=== PATIENT | female | born 1940 | race Caucasian/White ===

== ENCOUNTER → 2020-06-02 | Outpatient (CLI) | payer MEDICARE ==
[2020-06-02 12:44] LABS: BASOPHILS % (AUTO) 0.2 % (0.0-5.0); EOSINOPHILS % (AUTO) 1.5 % (0.0-8.0); HEMATOCRIT 34.1 % (36-48); LYMPHOCYTES % (AUTO) 79.7 % (21.0-51.0); MEAN CORPUSCULAR HEMOGLOBIN 29.1 pg (27.0-33.0); MEAN CORPUSCULAR VOLUME 91.2 fL (79-99); MONOCYTES % (AUTO) 5.7 % (3.0-13.0); NEUTROPHILS % (AUTO) 12.7 % (40.0-77.0); NUCLEATED RED BLOOD CELLS 0.1 % (0.0-0.19); PLATELET COUNT (AUTO) 103 K/uL (130-400); RED BLOOD CELL COUNT(AUTO) 3.74 MIL/uL (4.00-5.50); RED CELL DISTRIBUTION WIDTH 14.8 % (11.0-15.5); WHITE BLOOD COUNT (AUTO) 21.8 K/uL (4.8-10.8)
[2020-06-02 12:50] LABS: APPEARANCE,URINE Cloudy (CLEAR); BILIRUBIN,URINE Negative (NEGATIVE); COLOR,URINE Yellow (YELLOW); GLUCOSE, URINE (UA) Negative (NEGATIVE); KETONES,URINE Negative (NEGATIVE); LEUKOCYTE ESTERASE ,URINE Moderate (NEGATIVE); NITRATE,URINE Negative (NEGATIVE); OCCULT BLOOD,URINE Negative (NEGATIVE); PROTEIN,URINE Trace mg/dL (NEGATIVE); UROBILINOGEN,URINE 0.2 mg/dL (0.2-1.0)
[2020-06-02 12:56] LABS: CREATININE 1.2 mg/dL (0.5-1.5); POTASSIUM 4.8 mmol/L (3.5-5.1)
[2020-06-02 13:17] LABS: BACTERIA,URINE Many /HPF (None Seen); RBC,URINE 0-1 /HPF (0-1); SQUAMOUS EPITHELIAL CELL,UR Rare /HPF (0-2); WBC,URINE 26-50 /HPF (0-1)
[2020-06-02 13:19] LABS: INR 0.95 (0.85-1.15); PARTIAL THROMBOPLASTIN TIME 23.8 SEC (26.3-35.5); PROTHROMBIN TIME 10.3 SEC (9.6-11.6)
[2020-06-02 14:13] LABS: EOSINOPHILS % (MANUAL) 1 % (1-6); LYMPHOCYTES % (MANUAL) 86 % (22-44); MAN.DIFF COMMENT-IMPRESSION MANUAL DIFFERENTIAL; SEGMENTED NEUTROPHILS % 13 % (40-70)
[2020-06-02 14:14] LABS: PLATELET MORPHOLOGY COMMENT SLIGHTLY DECREASED
--- NOTE | 2020-06-03 10:12 | NUR ---
LABS ABNORMAL LABS INCLUDING HEMOGLOBIN, HEMATOCRIT, WBC, URINALYSIS, URINE CULTURE, AND PTT FAXED TO REJI HUERTA FOR REVIEW.
== END | disposition home or self-care (01) ==
LOC: DAH 10:00 → EDSTATUS 11:00
PROVIDERS: ATTEND Internal Medicine Cardiovascular Disease
DX: I35.0 Nonrheumatic aortic (valve) stenosis (principal); I50.42 Chronic combined systolic (congestive) and diastolic (congestive) heart failure; E78.5 Hyperlipidemia, unspecified; G47.33 Obstructive sleep apnea (adult) (pediatric); M17.10 Unilateral primary osteoarthritis, unspecified knee; Z79.01 Long term (current) use of anticoagulants; Z79.899 Other long term (current) drug therapy; Z88.1 Allergy status to other antibiotic agents; Z82.49 Family history of ischemic heart disease and other diseases of the circulatory system; Z53.8 Procedure and treatment not carried out for other reasons
CPT/HCPCS: 36415; 71045; 80048; 81001; 85025; 85610; 85730; 87077; 87088; 87186; 93005

== ENCOUNTER 2020-06-23 06:29 | Day surgery (SDC) | payer MEDICARE ==
[2020-06-18 14:35] LABS: BASOPHILS % (AUTO) 0.3 % (0.0-5.0); EOSINOPHILS % (AUTO) 1.2 % (0.0-8.0); HEMATOCRIT 31.5 % (36-48); LYMPHOCYTES % (AUTO) 79.7 % (21.0-51.0); MEAN CORPUSCULAR HEMOGLOBIN 29.4 pg (27.0-33.0); MEAN CORPUSCULAR HGB CONC 32.1 g/dL (32.0-36.0); MEAN CORPUSCULAR VOLUME 91.8 fL (79-99); MONOCYTES % (AUTO) 5.5 % (3.0-13.0); NEUTROPHILS % (AUTO) 13.1 % (40.0-77.0); PLATELET COUNT (AUTO) 100 K/uL (130-400); RED BLOOD CELL COUNT(AUTO) 3.43 MIL/uL (4.00-5.50); RED CELL DISTRIBUTION WIDTH 14.8 % (11.0-15.5); WHITE BLOOD COUNT (AUTO) 17.9 K/uL (4.8-10.8)
[2020-06-18 14:36] LABS: APPEARANCE,URINE Clear (CLEAR); BILIRUBIN,URINE Negative (NEGATIVE); COLOR,URINE Yellow (YELLOW); GLUCOSE, URINE (UA) Negative (NEGATIVE); KETONES,URINE Negative (NEGATIVE); LEUKOCYTE ESTERASE ,URINE Moderate (NEGATIVE); NITRATE,URINE Negative (NEGATIVE); OCCULT BLOOD,URINE Negative (NEGATIVE); PH,URINE 6.5 (5.0-8.0); PROTEIN,URINE Negative (NEGATIVE)
[2020-06-18 14:52] LABS: BACTERIA,URINE Moderate /HPF (None Seen); MUCUS,URINE Few LPF (None Seen); SQUAMOUS EPITHELIAL CELL,UR 0-2 /HPF (0-2)
[2020-06-18 14:56] LABS: CREATININE 1.2 mg/dL (0.5-1.5); POTASSIUM 4.4 mmol/L (3.5-5.1)
[2020-06-18 15:00] LABS: INR 0.97 (0.85-1.15); PARTIAL THROMBOPLASTIN TIME 23.6 SEC (26.3-35.5); PROTHROMBIN TIME 10.5 SEC (9.6-11.6)
--- NOTE | 2020-06-20 13:11 | NUR ---
Reported labs to Doctor Kimball in regards to urine cx and analysis, wbc 17.9, h/h 10.1/31.5, plt 100, sinker puller 1.2, no new orders.
[~2020-06-23] VITALS: Ht 167.6 cm; Wt 88.2 kg
[2020-06-23] VITALS (10 sets, daily range): BP systolic 118–136; BP diastolic 47–83
[~2020-06-23 06:29] MED LIST: CHOL100046 PO; FURO20TA4 PO; LEVO25TA85 PO; MULT-1192 PO; MV-M1TAB46 PO; ROSU10TA28 PO
--- NOTE | 2020-06-23 06:40 | NUR ---
DAY PT ARRIVAL PT ARRIVED FROM HOME ACCOMPANIED BY SON, NOTED IN NO APPARENT DISTRESS. PREP STARTED AT THIS TIME.
[2020-06-23] MEDS ORDERED: IOHEXOL-350 75 ML VIAL IV ONE ×2 (08:44→10:02)
[2020-06-23] MEDS ORDERED: HEPARIN SODIUM 1000UNIT/ML 10ML VIAL ONE (08:44)
[2020-06-23] MEDS ORDERED: IOHEXOL-350 50ML VIAL IV ONE (08:44)
[2020-06-23] MEDS ORDERED: NITROGLYCERIN 2 MG/VIAL VIAL IV ONE (08:44)
[2020-06-23] MEDS ORDERED: FENTANYL CITRATE PF 50 MCG/1 ML 2ML VIAL ONE (08:45)
[2020-06-23] MEDS ORDERED: LIDOCAINE HCL 2% 20ML ONE (08:45)
[2020-06-23] MEDS ORDERED: MIDAZOLAM HCL 1 MG/ML 2ML VIAL ONE (08:45)
[2020-06-23] MEDS ORDERED: IOHEXOL 350 MG/ML 100ML INFUS..BTL IV ONE (09:49)
[2020-06-23] MEDS ORDERED: FUROSEMIDE 10 MG/ML 2ML VIAL ONE (10:16)
[2020-06-23] MEDS ORDERED: CLOPIDOGREL BISULFATE 300 MG TAB ONE (10:27)
--- NOTE | 2020-06-23 10:35 | NUR ---
BOILER ROOM OPERATOR ARRIVAL PT ARRIVED FROM BOILER ROOM OPERATOR IN NO DISTRESS AND PAIN FREE. gROIN I SNOTED CLEAN AND DRY NON TENDER AND SOFT, DISTAL PULSES ARE AT BASELINE PER ARRIVAL.
--- NOTE | 2020-06-23 12:45 | NUR ---
Lunch tray provided at this time.
--- NOTE | 2020-06-23 15:02 | NUR ---
DAY PT DC PT TAKEN TO FRONT ER LOBBY WITH HER SON WAITING IN VEHICLE
== END 2020-06-23 15:04 | disposition home or self-care (01) ==
LOC: DAH 06:29
PROVIDERS: ATTEND Internal Medicine Cardiovascular Disease
DX: I25.119 Atherosclerotic heart disease of native coronary artery with unspecified angina pectoris (principal); Z20.828 Contact with and (suspected) exposure to other viral communicable diseases; I50.42 Chronic combined systolic (congestive) and diastolic (congestive) heart failure; I35.0 Nonrheumatic aortic (valve) stenosis; G47.33 Obstructive sleep apnea (adult) (pediatric); M19.90 Unspecified osteoarthritis, unspecified site; C91.10 Chronic lymphocytic leukemia of B-cell type not having achieved remission; Z82.49 Family history of ischemic heart disease and other diseases of the circulatory system; Z72.89 Other problems related to lifestyle; Z92.21 Personal history of antineoplastic chemotherapy; Z92.3 Personal history of irradiation; Z79.899 Other long term (current) drug therapy; Z79.01 Long term (current) use of anticoagulants
CPT/HCPCS: 36415; 71045; 80048; 81001; 85025; 85610; 85730; 87077; 87088; 87186; 93005; 93460; A4216; A4221; A4222; A4223 ×3; A4606; A4663; C1760; C1769; C1894 ×4; J1644 ×2; J1940; J2250; J3010; J3490 ×2; Q9965 ×2; Q9967 ×3; 99156; 99157

== ENCOUNTER → 2020-07-21 | Outpatient (CLI) | payer MEDICARE ==
[~2020-07-21] MED LIST changes: +REGADENOSON 0.4 MG/5 ML PF SYG IVP SCH
== END | disposition home or self-care (01) ==
LOC: SHCH 08:00
PROVIDERS: ATTEND Internal Medicine Cardiovascular Disease
DX: I25.119 Atherosclerotic heart disease of native coronary artery with unspecified angina pectoris (principal)
CPT/HCPCS: 78452; 93017; 96374; A9500 ×2; J2785

== ENCOUNTER 2020-08-16 19:28 | Inpatient (IN) | payer MEDICARE ==
[~2020-08-16] VITALS: Ht 170.2 cm; Wt 89.7 kg
[~2020-08-16 19:28] MED LIST changes: -REGADENOSON 0.4 MG/5 ML PF SYG IVP SCH
[2020-08-16 19:57] LABS: LYMPHOCYTES % (AUTO) 90.9 % (21.0-51.0); MEAN CORPUSCULAR HEMOGLOBIN 30.6 pg (27.0-33.0); MEAN CORPUSCULAR HGB CONC 25.9 g/dL (32.0-36.0); MEAN CORPUSCULAR VOLUME 118.4 fL (79-99); MONOCYTES % (AUTO) 1.7 % (3.0-13.0); NEUTROPHILS % (AUTO) 6.9 % (40.0-77.0); NUCLEATED RED BLOOD CELLS 0.1 % (0.0-0.19); PLATELET COUNT (AUTO) 180 K/uL (130-400); RED BLOOD CELL COUNT(AUTO) 1.47 MIL/uL (4.00-5.50); RED CELL DISTRIBUTION WIDTH 29.8 % (11.0-15.5)
[2020-08-16 20:06] LABS: HEMATOCRIT 17.4 % (36-48)
[2020-08-16 20:11] LABS: CREATININE 1.8 mg/dL (0.5-1.5); POTASSIUM 4.1 mmol/L (3.5-5.1)
[2020-08-16 20:13] LABS: INR 1.46 (0.85-1.15); PROTHROMBIN TIME 15.1 SEC (9.6-11.6)
[2020-08-16 20:15] LABS: B-TYPE NATRIURETIC PEPTIDE 850 pg/mL (0-100); PARTIAL THROMBOPLASTIN TIME 21.3 SEC (26.3-35.5)
[2020-08-16 20:16] LABS: ALBUMIN 3.8 g/dL (3.5-5.0); BILIRUBIN,TOTAL 3.3 mg/dL (0.2-1.0); TOTAL PROTEIN, SERUM 5.5 g/dL (6.0-8.3)
[2020-08-16 21:12] LABS: LYMPHOCYTES % (MANUAL) 78 % (22-44); MAN.DIFF COMMENT-IMPRESSION MANUAL DIFFERENTIAL; REACTIVE LYMPHOCYTES 6 % (0-0); SEGMENTED NEUTROPHILS % 16 % (40-70)
[2020-08-16 21:41] LABS: APPEARANCE,URINE Clear (CLEAR); BILIRUBIN,URINE Small (NEGATIVE); COLOR,URINE Dark Yellow (YELLOW); GLUCOSE, URINE (UA) Negative (NEGATIVE); KETONES,URINE Negative (NEGATIVE); LEUKOCYTE ESTERASE ,URINE Moderate (NEGATIVE); NITRATE,URINE Negative (NEGATIVE); OCCULT BLOOD,URINE Negative (NEGATIVE); PROTEIN,URINE Negative (NEGATIVE)
[2020-08-16 21:50] LABS: BACTERIA,URINE Few /HPF (None Seen); RBC,URINE 0-1 /HPF (0-1); SQUAMOUS EPITHELIAL CELL,UR Few /HPF (0-2); TRANSITIONAL EPI CELLS,URINE Rare /HPF (None Seen)
[2020-08-16 21:51] LABS: MUCUS,URINE Rare LPF (None Seen)
[2020-08-16] MEDS ORDERED: LEVOFLOXACIN 500 MG/D5W 100 ML 100 ML ONE (22:04)
[2020-08-16] MEDS ORDERED: 0.9% NACL 250ML 250 ML IV ONE (23:06)
[2020-08-16] MEDS ORDERED: METO25TA6 PO (23:54)
[2020-08-16] MEDS ORDERED: AEC81 PO (23:54)
[2020-08-16] MEDS ORDERED: CLOP75TA14 PO (23:54)
[2020-08-16] MEDS ORDERED: NAPR-1141 PO (23:54)
[2020-08-17 01:30] VITALS: BP 118/59
[2020-08-17] MEDS ORDERED: 0.9% NACL 500ML IV.SOLN 500 ML IV ONE (02:02)
[2020-08-17] MEDS ORDERED: DIPHENOXYLATE HCL/ATROPINE 2.5/0.025 MG TAB PO PRN (02:45)
[2020-08-17] MEDS ORDERED: ONDANSETRON 4MG INJ IVP PRN (02:45)
[2020-08-17 04:20] VITALS: BP 121/66
[2020-08-17 08:00] VITALS: BP 136/77
[2020-08-17 10:24] LABS: HEMATOCRIT 23.4 % (36-48); MEAN CORPUSCULAR HEMOGLOBIN 30.4 pg (27.0-33.0); MEAN CORPUSCULAR HGB CONC 29.5 g/dL (32.0-36.0); MEAN CORPUSCULAR VOLUME 103.1 fL (79-99); NUCLEATED RED BLOOD CELLS 0.2 % (0.0-0.19); RED BLOOD CELL COUNT(AUTO) 2.27 MIL/uL (4.00-5.50)
[2020-08-17 11:17] LABS: CREATININE 1.4 mg/dL (0.5-1.5); POTASSIUM 3.9 mmol/L (3.5-5.1)
[2020-08-17] MEDS: LEVOTHYROXINE 25 MCG TABLET PO SCH (11:31)
[2020-08-17] MEDS: ***HM*** (Cholecalciferol (Vitamin D3) (Vitamin D3) 25 MCG) PO SCH (11:32)
[2020-08-17] MEDS: MULTIVITAMINS/MINERALS/IRO TAB PO SCH (11:33)
[2020-08-17] MEDS: NAPROXEN 250 MG TAB PO SCH (11:34)
[2020-08-17 12:00] VITALS: BP 107/73
[2020-08-17 16:00] VITALS: BP 104/56
[2020-08-17 19:00] VITALS: BP 118/70
[2020-08-17] MEDS: FUROSEMIDE 20MG VIAL IV SCH (20:15)
[2020-08-17] MEDS ORDERED: FUROSEMIDE 40MG VIAL ONE (21:01)
[2020-08-17] MEDS: ATORVASTATIN 20 MG TABLET PO SCH (21:04)
[2020-08-17] MEDS: GUAIFENESIN-DM 200/20 MG 10 ML PO PRN (21:04)
[2020-08-17] MEDS: ALBUTEROL INHALER 90MCG/INH IH SCH (21:06)
[2020-08-17] MEDS ORDERED: FUROSEMIDE 40MG VIAL IV SCH (22:00)
[2020-08-18] VITALS (7 sets, daily range): BP systolic 91–125; BP diastolic 48–63
[2020-08-18] MEDS: FUROSEMIDE 20MG VIAL IV SCH ×3 (04:04→22:56)
[2020-08-18] MEDS: ALBUTEROL INHALER 90MCG/INH IH SCH ×5 (04:04→18:26)
[2020-08-18] MEDS: GUAIFENESIN-DM 200/20 MG 10 ML PO PRN (04:04)
[2020-08-18] MEDS: LEVOTHYROXINE 25 MCG TABLET PO SCH (05:26)
[2020-08-18 06:38] LABS: MEAN CORPUSCULAR HEMOGLOBIN 30.7 pg (27.0-33.0); MEAN CORPUSCULAR HGB CONC 30.9 g/dL (32.0-36.0); MEAN CORPUSCULAR VOLUME 99.6 fL (79-99); NUCLEATED RED BLOOD CELLS 0.1 % (0.0-0.19); PLATELET COUNT (AUTO) 94 K/uL (130-400); RED BLOOD CELL COUNT(AUTO) 2.31 MIL/uL (4.00-5.50); RED CELL DISTRIBUTION WIDTH 19.4 % (11.0-15.5)
[2020-08-18 06:56] LABS: WHITE BLOOD COUNT (AUTO) 74.1 K/uL (4.8-10.8)
[2020-08-18 07:15] LABS: CREATININE 1.3 mg/dL (0.5-1.5); POTASSIUM 3.3 mmol/L (3.5-5.1)
[2020-08-18 08:28] LABS: LYMPHOCYTES % (MANUAL) 95 % (22-44); MAN.DIFF COMMENT-IMPRESSION MANUAL DIFFERENTIAL; MONOCYTES % (MANUAL) 2 % (2-9); PLATELET MORPHOLOGY COMMENT DECREASED; SEGMENTED NEUTROPHILS % 3 % (40-70)
[2020-08-18] MEDS: ASPIRIN 81 MG EC TAB PO SCH (09:00)
[2020-08-18] MEDS: ***HM*** (Cholecalciferol (Vitamin D3) (Vitamin D3) 25 MCG) PO SCH (09:00)
[2020-08-18] MEDS: CLOPIDOGREL 75MG TAB PO SCH (09:00)
[2020-08-18] MEDS ORDERED: FUROSEMIDE 20 MG TABLET PO SCH (09:00)
[2020-08-18] MEDS: MULTIVITAMINS/MINERALS/IRO TAB PO SCH (10:14)
[2020-08-18] MEDS: METOPROLOL TARTRATE 25 MG TAB PO SCH (10:14)
[2020-08-18] MEDS: NAPROXEN 250 MG TAB PO SCH (10:14)
[2020-08-18] MEDS: CEFTRIAXONE 1G VIAL IVP SCH (12:48)
[2020-08-18] MEDS: ATORVASTATIN 20 MG TABLET PO SCH (20:37)
[2020-08-18] MEDS ORDERED: POTASSIUM CHLORIDE 10% ELIXIR 20 MEQ/15 ML UDCUP PO PRN (22:15)
[2020-08-18] MEDS ORDERED: POTASSIUM CHLORIDE 10MEQ/100ML 100 ML IV PRN (22:15)
[2020-08-18] MEDS ORDERED: LIDOCAINE HCL-MPF 1% 2ML VIAL IV PRN (22:15)
[2020-08-18] MEDS: KCL 20 MEQ ERTAB PO PRN (22:54)
[2020-08-18] MEDS ORDERED: 0.9% NACL 500ML IV.SOLN 500 ML IV ONE (23:07)
[2020-08-19] VITALS (7 sets, daily range): BP systolic 98–143; BP diastolic 50–58
[2020-08-19] MEDS: KCL 20 MEQ ERTAB PO PRN ×2 (00:32→21:41)
[2020-08-19] MEDS: IPRATROPIUM/ALBUTEROL SULFATE 3 ML SOLUTION IH SCH ×6 (02:49→22:38)
[2020-08-19] MEDS: GUAIFENESIN-DM 200/20 MG 10 ML PO PRN ×3 (03:20→21:43)
[2020-08-19] MEDS: BISACODYL 10 MG SUPP.RECT RC PRN ×2 (06:03→21:42)
[2020-08-19] MEDS: FUROSEMIDE 20MG VIAL IV SCH ×3 (06:03→21:41)
[2020-08-19] MEDS: LEVOTHYROXINE 25 MCG TABLET PO SCH (06:03)
[2020-08-19 06:55] LABS: ABG BASE EXCESS 2.9 mmol/L (-2.0-3.0); ABG OXYGEN SATURATION 98.2 % (95.0-99.0); ABG PCO2 35 mmHg (32-45)
[2020-08-19 07:37] LABS: EOSINOPHILS % (AUTO) 0.1 % (0.0-8.0); HEMATOCRIT 27.4 % (36-48); LYMPHOCYTES % (AUTO) 88.8 % (21.0-51.0); MEAN CORPUSCULAR HEMOGLOBIN 30.8 pg (27.0-33.0); MEAN CORPUSCULAR HGB CONC 31.4 g/dL (32.0-36.0); MEAN CORPUSCULAR VOLUME 98.2 fL (79-99); MONOCYTES % (AUTO) 0.9 % (3.0-13.0); NEUTROPHILS % (AUTO) 9.9 % (40.0-77.0); PLATELET COUNT (AUTO) 73 K/uL (130-400); RED BLOOD CELL COUNT(AUTO) 2.79 MIL/uL (4.00-5.50); RED CELL DISTRIBUTION WIDTH 18.5 % (11.0-15.5)
[2020-08-19 07:38] LABS: WHITE BLOOD COUNT (AUTO) 62.3 K/uL (4.8-10.8)
[2020-08-19 08:06] LABS: ALBUMIN 3.3 g/dL (3.5-5.0); BILIRUBIN,TOTAL 6.9 mg/dL (0.2-1.0); CREATININE 1.1 mg/dL (0.5-1.5); MAGNESIUM 1.7 mg/dL (1.80-2.40); POTASSIUM 3.6 mmol/L (3.5-5.1); TOTAL PROTEIN, SERUM 5.3 g/dL (6.0-8.3)
[2020-08-19 08:14] LABS: B-TYPE NATRIURETIC PEPTIDE 897 pg/mL (0-100)
[2020-08-19 08:16] LABS: EOSINOPHILS % (MANUAL) 2 % (1-6); LYMPHOCYTES % (MANUAL) 76 % (22-44); MAN.DIFF COMMENT-IMPRESSION MANUAL DIFFERENTIAL; REACTIVE LYMPHOCYTES 15 % (0-0); SEGMENTED NEUTROPHILS % 7 % (40-70)
[2020-08-19 08:17] LABS: PLATELET MORPHOLOGY COMMENT DECREASED
[2020-08-19] MEDS: CLOPIDOGREL 75MG TAB PO SCH (09:00)
[2020-08-19] MEDS: NAPROXEN 250 MG TAB PO SCH (09:00)
[2020-08-19] MEDS: ***HM*** (Cholecalciferol (Vitamin D3) (Vitamin D3) 25 MCG) PO SCH (09:00)
[2020-08-19] MEDS: ASPIRIN 81 MG EC TAB PO SCH (09:00)
[2020-08-19] MEDS: CEFTRIAXONE 1G VIAL IVP SCH (10:43)
[2020-08-19] MEDS: METOPROLOL TARTRATE 25 MG TAB PO SCH (10:43)
[2020-08-19] MEDS: MULTIVITAMINS/MINERALS/IRO TAB PO SCH (10:44)
[2020-08-19] MEDS ORDERED: MAGNESIUM 2GM PREMIX 50ML 50 ML IV SCH (13:15)
[2020-08-19] MEDS ORDERED: MAGNESIUM 2GM PREMIX 50ML 50 ML IV ONE (13:20)
[2020-08-19] MEDS: ATORVASTATIN 20 MG TABLET PO SCH (21:41)
[2020-08-19] MEDS: ACETAMINOPHEN 325 MG TAB PO PRN (21:42)
[2020-08-20] MEDS: IPRATROPIUM/ALBUTEROL SULFATE 3 ML SOLUTION IH SCH ×4 (02:00→14:07)
[2020-08-20 04:14] VITALS: BP 101/48
[2020-08-20] MEDS: LEVOTHYROXINE 25 MCG TABLET PO SCH (06:16)
[2020-08-20] MEDS: FUROSEMIDE 20MG VIAL IV SCH (06:16)
[2020-08-20] MEDS: ACETAMINOPHEN 325 MG TAB PO PRN (06:17)
[2020-08-20 08:00] VITALS: BP 116/59
[2020-08-20 08:32] LABS: BASOPHILS % (AUTO) 0.1 % (0.0-5.0); EOSINOPHILS % (AUTO) 0.2 % (0.0-8.0); HEMATOCRIT 23.2 % (36-48); LYMPHOCYTES % (AUTO) 86.1 % (21.0-51.0); MEAN CORPUSCULAR HGB CONC 32.3 g/dL (32.0-36.0); MEAN CORPUSCULAR VOLUME 95.9 fL (79-99); MONOCYTES % (AUTO) 0.7 % (3.0-13.0); NEUTROPHILS % (AUTO) 12.7 % (40.0-77.0); PLATELET COUNT (AUTO) 66 K/uL (130-400); RED BLOOD CELL COUNT(AUTO) 2.42 MIL/uL (4.00-5.50); RED CELL DISTRIBUTION WIDTH 18.1 % (11.0-15.5)
[2020-08-20] MEDS: CLOPIDOGREL 75MG TAB PO SCH (08:36)
[2020-08-20 08:37] LABS: WHITE BLOOD COUNT (AUTO) 35.7 K/uL (4.8-10.8)
[2020-08-20] MEDS: ASPIRIN 81 MG EC TAB PO SCH (08:37)
[2020-08-20] MEDS: METOPROLOL TARTRATE 25 MG TAB PO SCH (08:39)
[2020-08-20] MEDS: NAPROXEN 250 MG TAB PO SCH (08:39)
[2020-08-20] MEDS: ***HM*** (Cholecalciferol (Vitamin D3) (Vitamin D3) 25 MCG) PO SCH (08:39)
[2020-08-20] MEDS: MULTIVITAMINS/MINERALS/IRO TAB PO SCH (08:39)
[2020-08-20 08:46] LABS: POTASSIUM 3.8 mmol/L (3.5-5.1)
[2020-08-20 09:20] LABS: LYMPHOCYTES % (MANUAL) 84 % (22-44); MAN.DIFF COMMENT-IMPRESSION MANUAL DIFFERENTIAL; SEGMENTED NEUTROPHILS % 16 % (40-70)
[2020-08-20 09:21] LABS: PLATELET MORPHOLOGY COMMENT DECREASED
[2020-08-20] MEDS: CEFTRIAXONE 1G VIAL IVP SCH (11:51)
[2020-08-20 12:00] VITALS: BP 114/62
[2020-08-20 16:39] VITALS: BP 108/64
[2020-08-20] MEDS ORDERED: FUROSEMIDE 20MG VIAL IV SCH (21:00)
[2021-06-10] MEDS ORDERED: METO100T14 PO (13:54)
[2021-06-10] MEDS ORDERED: DILT120T PO (13:54)
[2021-06-10] MEDS ORDERED: APIX5TAB PO (13:54)
[2021-06-10] MEDS ORDERED: POTA-79 PO (13:54)
[2021-06-10] MEDS ORDERED: TORS20TA4 PO (13:54)
[2021-06-10] MEDS ORDERED: FOLATE PO (13:54)
[2021-06-10] MEDS ORDERED: ASCO100031 PO (13:54)
== END 2020-08-20 18:55 | disposition home or self-care (01) | DRG 291 ==
LOC: EDH 19:28 → EDHIP 21:19 → 3CH 08-17 01:28
PROVIDERS: ADMIT Internal Medicine Hematology & Oncology; ATTEND Internal Medicine Hematology & Oncology
PROC: 30233N1 Transfusion of Nonautologous Red Blood Cells into Peripheral Vein, Percutaneous Approach (ICD-10-PCS; principal; 2020-08-16)
DX: I11.0 Hypertensive heart disease with heart failure (principal); J18.9 Pneumonia, unspecified organism; N17.9 Acute kidney failure, unspecified; N39.0 Urinary tract infection, site not specified; C91.12 Chronic lymphocytic leukemia of B-cell type in relapse; D84.9 Immunodeficiency, unspecified; J98.11 Atelectasis; K92.2 Gastrointestinal hemorrhage, unspecified; E87.1 Hypo-osmolality and hyponatremia; I50.33 Acute on chronic diastolic (congestive) heart failure; D64.9 Anemia, unspecified; E03.9 Hypothyroidism, unspecified; C44.320 Squamous cell carcinoma of skin of unspecified parts of face; E78.00 Pure hypercholesterolemia, unspecified; I35.0 Nonrheumatic aortic (valve) stenosis; Z90.711 Acquired absence of uterus with remaining cervical stump; Z88.0 Allergy status to penicillin; Z88.7 Allergy status to serum and vaccine; Z82.49 Family history of ischemic heart disease and other diseases of the circulatory system; Z20.822 Contact with and (suspected) exposure to COVID-19
CPT/HCPCS: 36415; 36430; 36600; 71045; 71250; 80048; 80053; 81001; 82270; 82550; 82803; 83735; 83880; 84145; 84484; 85025; 85027; 85378; 85610; 85730; 86850; 86900; 86901; 86923; 87040; 87071; 87088; 87205; 87426; 87804; 93005; 94640; 94664; 97039; A4344; G0378; J0696; J1940; J1956; J3475; J7040; J7050; P9016; U0003

== ENCOUNTER → 2020-08-25 | Outpatient (CLI) | payer MEDICARE ==
[~2020-08-25] MED LIST changes: +AEC81 PO; +CLOP75TA14 PO; +METO25TA6 PO; -MULT-1192 PO; +NAPR-1141 PO
== END | disposition home or self-care (01) ==
LOC: OIH 14:38
PROVIDERS: ATTEND Internal Medicine Cardiovascular Disease
DX: J90 Pleural effusion, not elsewhere classified (principal); J98.11 Atelectasis; I50.30 Unspecified diastolic (congestive) heart failure
CPT/HCPCS: 71046

== ENCOUNTER 2020-08-27 11:35 | Inpatient (IN) | payer MEDICARE ==
[~2020-08-27] VITALS: Ht 170.2 cm; Wt 82.6 kg
[2020-08-27 12:19] VITALS: BP 109/60
[2020-08-27 13:40] LABS: BASOPHILS % (AUTO) 0.1 % (0.0-5.0); EOSINOPHILS % (AUTO) 0.1 % (0.0-8.0); LYMPHOCYTES % (AUTO) 86.9 % (21.0-51.0); MEAN CORPUSCULAR HEMOGLOBIN 31.2 pg (27.0-33.0); MEAN CORPUSCULAR VOLUME 100.6 fL (79-99); MONOCYTES % (AUTO) 1.2 % (3.0-13.0); NEUTROPHILS % (AUTO) 11.3 % (40.0-77.0); NUCLEATED RED BLOOD CELLS 0.1 % (0.0-0.19); PLATELET COUNT (AUTO) 109 K/uL (130-400); RED BLOOD CELL COUNT(AUTO) 1.57 MIL/uL (4.00-5.50); RED CELL DISTRIBUTION WIDTH 17.5 % (11.0-15.5)
[2020-08-27 13:42] LABS: WHITE BLOOD COUNT (AUTO) 33.7 K/uL (4.8-10.8)
[2020-08-27 13:43] LABS: HEMATOCRIT 15.8 % (36-48)
[2020-08-27 14:12] LABS: LYMPHOCYTES % (MANUAL) 87 % (22-44); MAN.DIFF COMMENT-IMPRESSION MANUAL DIFFERENTIAL; MONOCYTES % (MANUAL) 5 % (2-9); SEGMENTED NEUTROPHILS % 8 % (40-70)
[2020-08-27 14:15] LABS: PLATELET MORPHOLOGY COMMENT DECREASED
[2020-08-27] MEDS ORDERED: 0.9% NACL 250ML 250 ML IV ONE (14:16)
[2020-08-27 16:49] VITALS: BP 104/49
[2020-08-27] MEDS: FUROSEMIDE 20MG VIAL IV SCH ×2 (20:05→21:48)
[2020-08-27 20:25] VITALS: BP 125/61
[2020-08-28] VITALS (7 sets, daily range): BP systolic 101–132; BP diastolic 55–71
[2020-08-28] MEDS: FUROSEMIDE 20MG VIAL IV SCH ×3 (00:01→20:15)
[2020-08-28 07:31] LABS: HEMATOCRIT 22.8 % (36-48); MEAN CORPUSCULAR HGB CONC 32.9 g/dL (32.0-36.0); MEAN CORPUSCULAR VOLUME 94.2 fL (79-99); NUCLEATED RED BLOOD CELLS 0.1 % (0.0-0.19); RED BLOOD CELL COUNT(AUTO) 2.42 MIL/uL (4.00-5.50); RED CELL DISTRIBUTION WIDTH 15.3 % (11.0-15.5)
[2020-08-28 07:47] LABS: WHITE BLOOD COUNT (AUTO) 34.9 K/uL (4.8-10.8)
[2020-08-28] MEDS ORDERED: FUROSEMIDE 20MG VIAL IV SCH (13:00)
[2020-08-28] MEDS ORDERED: ACETAMINOPHEN 650 MG SUPPOSITORY RC PRN (13:45)
[2020-08-28] MEDS ORDERED: DIPHENHYDRAMINE HCL 25 MG CAPSULE PO PRN (13:45)
[2020-08-28] MEDS ORDERED: ONDANSETRON 4MG INJ IVP PRN (13:45)
[2020-08-28 14:10] LABS: ALBUMIN 3.3 g/dL (3.5-5.0); BILIRUBIN,TOTAL 2.5 mg/dL (0.2-1.0); CREATININE 1.9 mg/dL (0.5-1.5); POTASSIUM 4.1 mmol/L (3.5-5.1); TOTAL PROTEIN, SERUM 5.2 g/dL (6.0-8.3)
[2020-08-28] MEDS ORDERED: FUROSEMIDE 40MG VIAL IV SCH (14:10)
[2020-08-28] MEDS ORDERED: 0.9% NACL 250ML 250 ML IV ONE (20:04)
[2020-08-28] MEDS ORDERED: NON-FORMULARY MEDICATION 1 EACH (Rosuvastatin Calcium 10 MG) PO SCH (21:00)
[2020-08-29] VITALS (11 sets, daily range): BP systolic 92–124; BP diastolic 48–67
[2020-08-29 04:42] LABS: HEMATOCRIT 25.2 % (36-48); MEAN CORPUSCULAR HEMOGLOBIN 30.6 pg (27.0-33.0); MEAN CORPUSCULAR HGB CONC 32.9 g/dL (32.0-36.0); NUCLEATED RED BLOOD CELLS 0.1 % (0.0-0.19); PLATELET COUNT (AUTO) 91 K/uL (130-400); RED BLOOD CELL COUNT(AUTO) 2.71 MIL/uL (4.00-5.50)
[2020-08-29 04:48] LABS: WHITE BLOOD COUNT (AUTO) 30.4 K/uL (4.8-10.8)
[2020-08-29 05:32] LABS: CREATININE 1.4 mg/dL (0.5-1.5); MAGNESIUM 1.4 mg/dL (1.80-2.40); POTASSIUM 3.2 mmol/L (3.5-5.1); THYROID STIMULATING HORMONE 2.84 uIU/mL (0.36-3.74)
[2020-08-29] MEDS: LEVOTHYROXINE 25 MCG TABLET PO SCH (06:23)
[2020-08-29] MEDS ORDERED: GUAIFENESIN-DM 200/20 MG 10 ML ONE (06:28)
[2020-08-29 06:30] LABS: LYMPHOCYTES % (MANUAL) 84 % (22-44); MONOCYTES % (MANUAL) 2 % (2-9); SEGMENTED NEUTROPHILS % 14 % (40-70)
[2020-08-29 06:31] LABS: MAN.DIFF COMMENT-IMPRESSION MANUAL DIFFERENTIAL; PLATELET MORPHOLOGY COMMENT DECREASED
[2020-08-29] MEDS ORDERED: POTASSIUM CHLORIDE 20MEQ/100ML 100 ML IV PRN ×2 (08:00)
[2020-08-29] MEDS ORDERED: KCL 20 MEQ ERTAB PO PRN (08:00)
[2020-08-29] MEDS ORDERED: LIDOCAINE HCL-MPF 1% 2ML VIAL IV PRN ×2 (08:00)
[2020-08-29] MEDS ORDERED: NON-FORMULARY MEDICATION 1 EACH (Cholecalciferol (Vitamin D3) (Vitamin D3) 25 MCG) PO SCH (09:00)
[2020-08-29] MEDS: Rosuvastatin Calcium 10 MG PO SCH (09:00)
[2020-08-29] MEDS: Cholecalciferol (Vitamin D3) (Vitamin D3) 25 MCG PO SCH (09:00)
[2020-08-29] MEDS: FUROSEMIDE 20MG VIAL IV SCH ×2 (09:57→17:03)
[2020-08-29] MEDS: POTASSIUM CHLORIDE 10% ELIXIR 20 MEQ/15 ML UDCUP PO PRN ×3 (09:59→18:56)
[2020-08-29] MEDS: MAGNESIUM 2GM PREMIX 50ML 50 ML IV SCH ×2 (10:01→17:04)
[2020-08-29 13:25] LABS: INR 1.18 (0.85-1.15); PROTHROMBIN TIME 12.4 SEC (9.6-11.6)
[2020-08-29 13:27] LABS: PARTIAL THROMBOPLASTIN TIME 23.9 SEC (26.3-35.5)
[2020-08-29] MEDS ORDERED: SODIUM BICARB 50MEQ 50ML VIAL 50 ML ONE (14:02)
[2020-08-29] MEDS ORDERED: MIDAZOLAM HCL 1 MG/ML 2ML VIAL ONE (14:02)
[2020-08-29] MEDS ORDERED: FENTANYL CITRATE PF 50 MCG/1 ML 2ML VIAL ONE (14:02)
[2020-08-29] MEDS ORDERED: LIDOCAINE HCL 400MG/20ML VIAL ONE (14:03)
[2020-08-29] MEDS ORDERED: HEPARIN 1,000 UNIT VIAL ONE (14:04)
[2020-08-29] MEDS ORDERED: OCTYL 2-CYANOACRYLATE 1 EACH TP ONE (15:24)
[2020-08-30] VITALS (7 sets, daily range): BP systolic 104–126; BP diastolic 44–63
[2020-08-30] MEDS ORDERED: LORAZEPAM 0.5 MG TABLET PO PRN (00:30)
[2020-08-30] MEDS ORDERED: CHLORDIAZEPOXIDE HCL 25 MG CAP PO PRN (00:30)
[2020-08-30] MEDS: ACETAMINOPHEN 325 MG TAB PO PRN ×2 (01:41→12:38)
[2020-08-30] MEDS: FUROSEMIDE 20MG VIAL IV SCH ×3 (01:41→18:39)
[2020-08-30 01:43] LABS: APPEARANCE,URINE Clear (CLEAR); BILIRUBIN,URINE Negative (NEGATIVE); COLOR,URINE Dark Yellow (YELLOW); GLUCOSE, URINE (UA) Negative (NEGATIVE); KETONES,URINE Negative (NEGATIVE); LEUKOCYTE ESTERASE ,URINE Trace (NEGATIVE); NITRATE,URINE Negative (NEGATIVE); OCCULT BLOOD,URINE Small (NEGATIVE); PH,URINE 5.5 (5.0-8.0); PROTEIN,URINE POS 1+ mg/dL (NEGATIVE); UROBILINOGEN,URINE 0.2 mg/dL (0.2-1.0)
[2020-08-30 01:58] LABS: BACTERIA,URINE Few /HPF (None Seen); RBC,URINE 0-1 /HPF (0-1)
[2020-08-30 01:59] LABS: FINE GRANULAR CASTS,URINE 0-2 /LPF (None Seen)
[2020-08-30] MEDS: LEVOTHYROXINE 25 MCG TABLET PO SCH (05:31)
[2020-08-30 06:12] LABS: MEAN CORPUSCULAR HEMOGLOBIN 30.5 pg (27.0-33.0); MEAN CORPUSCULAR VOLUME 95.4 fL (79-99); RED BLOOD CELL COUNT(AUTO) 2.62 MIL/uL (4.00-5.50); WHITE BLOOD COUNT (AUTO) 16.8 K/uL (4.8-10.8)
[2020-08-30 06:37] LABS: CREATININE 1.1 mg/dL (0.5-1.5); MAGNESIUM 2.2 mg/dL (1.80-2.40); POTASSIUM 3.8 mmol/L (3.5-5.1)
[2020-08-30] MEDS: Cholecalciferol (Vitamin D3) (Vitamin D3) 25 MCG PO SCH (09:00)
[2020-08-30] MEDS: Rosuvastatin Calcium 10 MG PO SCH (09:00)
[2020-08-30] MEDS: THIAMINE HCL 100 MG TABLET PO SCH (10:49)
[2020-08-30] MEDS: FOLIC ACID 1 MG TABLET PO SCH (10:49)
[2020-08-30] MEDS: MULTIVITAMIN TABLET PO SCH (10:49)
[2020-08-30 15:17] LABS: RETICULOCYTE % (AUTO) 3.53 % (0.42-2.23)
[2020-08-31 04:00] VITALS: BP 105/53
[2020-08-31] MEDS: FUROSEMIDE 20MG VIAL IV SCH ×3 (05:11→21:55)
[2020-08-31] MEDS: LEVOTHYROXINE 25 MCG TABLET PO SCH (05:44)
[2020-08-31 08:00] VITALS: BP 109/48
[2020-08-31] MEDS: Rosuvastatin Calcium 10 MG PO SCH (09:00)
[2020-08-31] MEDS: Cholecalciferol (Vitamin D3) (Vitamin D3) 25 MCG PO SCH (09:00)
[2020-08-31] MEDS: MULTIVITAMIN TABLET PO SCH (09:00)
[2020-08-31] MEDS: THIAMINE HCL 100 MG TABLET PO SCH (09:00)
[2020-08-31] MEDS: FOLIC ACID 1 MG TABLET PO SCH (09:00)
[2020-08-31 11:35] VITALS: BP 105/55
[2020-08-31 12:13] LABS: HEMATOCRIT 21.4 % (36-48); MEAN CORPUSCULAR HEMOGLOBIN 31.8 pg (27.0-33.0); MEAN CORPUSCULAR HGB CONC 32.7 g/dL (32.0-36.0); MEAN CORPUSCULAR VOLUME 97.3 fL (79-99); PLATELET COUNT (AUTO) 80 K/uL (130-400); RED CELL DISTRIBUTION WIDTH 15.5 % (11.0-15.5); WHITE BLOOD COUNT (AUTO) 14.7 K/uL (4.8-10.8)
[2020-08-31 12:31] LABS: POTASSIUM 3.6 mmol/L (3.5-5.1)
[2020-08-31 13:33] LABS: RETICULOCYTE % (AUTO) 4.29 % (0.42-2.23)
[2020-08-31 13:34] LABS: LYMPHOCYTES % (MANUAL) 89 % (22-44); MAN.DIFF COMMENT-IMPRESSION MANUAL DIFFERENTIAL; SEGMENTED NEUTROPHILS % 11 % (40-70)
[2020-08-31 13:35] LABS: PLATELET MORPHOLOGY COMMENT DECREASED
[2020-08-31] MEDS ORDERED: SOLU-MEDROL 125MG VIAL IVP SCH (14:45)
[2020-08-31 16:00] VITALS: BP 115/60
[2020-08-31] MEDS ORDERED: PREDNISONE 20 MG TABLET PO SCH (17:45)
[2020-08-31 20:03] VITALS: BP 127/55
[2020-08-31 21:42] LABS: HEMATOCRIT 21.1 % (36-48)
[2020-08-31] MEDS: POTASSIUM CHLORIDE 10% ELIXIR 20 MEQ/15 ML UDCUP PO PRN (22:02)
[2020-08-31] MEDS ORDERED: 0.9% NACL 250ML 250 ML IV ONE (22:26)
[2020-08-31 23:43] VITALS: BP 98/52
[2020-09-01] MEDS: POTASSIUM CHLORIDE 10% ELIXIR 20 MEQ/15 ML UDCUP PO PRN (00:52)
[2020-09-01 04:05] VITALS: BP 109/61
[2020-09-01] MEDS ORDERED: SOLU-MEDROL 125MG VIAL ONE (05:36)
[2020-09-01] MEDS: LEVOTHYROXINE 25 MCG TABLET PO SCH (06:14)
[2020-09-01] MEDS: FUROSEMIDE 20MG VIAL IV SCH ×3 (06:14→22:58)
[2020-09-01] MEDS: SOLU-MEDROL 125MG VIAL IVP SCH ×3 (06:14→22:57)
[2020-09-01 07:59] VITALS: BP 114/55
[2020-09-01] MEDS: Cholecalciferol (Vitamin D3) (Vitamin D3) 25 MCG PO SCH (09:00)
[2020-09-01] MEDS: Rosuvastatin Calcium 10 MG PO SCH (09:00)
[2020-09-01 09:22] LABS: HEMATOCRIT 26.5 % (36-48); MEAN CORPUSCULAR HEMOGLOBIN 30.9 pg (27.0-33.0); MEAN CORPUSCULAR HGB CONC 32.8 g/dL (32.0-36.0); RED BLOOD CELL COUNT(AUTO) 2.82 MIL/uL (4.00-5.50); RED CELL DISTRIBUTION WIDTH 15.2 % (11.0-15.5); WHITE BLOOD COUNT (AUTO) 19.6 K/uL (4.8-10.8)
[2020-09-01 09:34] LABS: POTASSIUM 3.8 mmol/L (3.5-5.1)
[2020-09-01] MEDS: FOLIC ACID 1 MG TABLET PO SCH (09:40)
[2020-09-01] MEDS: MULTIVITAMIN TABLET PO SCH (09:40)
[2020-09-01] MEDS: THIAMINE HCL 100 MG TABLET PO SCH (09:40)
[2020-09-01 11:26] VITALS: BP 111/55
[2020-09-01 16:00] VITALS: BP 115/57
[2020-09-01 19:54] VITALS: BP 112/53
[2020-09-01 23:32] VITALS: BP 112/57
[2020-09-02] VITALS (7 sets, daily range): BP systolic 114–137; BP diastolic 57–77
[2020-09-02 03:52] LABS: BASOPHILS % (AUTO) 0.1 % (0.0-5.0); EOSINOPHILS % (AUTO) 0.6 % (0.0-8.0); LYMPHOCYTES % (AUTO) 80.7 % (21.0-51.0); MEAN CORPUSCULAR HEMOGLOBIN 31.5 pg (27.0-33.0); MEAN CORPUSCULAR HGB CONC 33.3 g/dL (32.0-36.0); MEAN CORPUSCULAR VOLUME 94.5 fL (79-99); MONOCYTES % (AUTO) 3.4 % (3.0-13.0); PLATELET COUNT (AUTO) 88 K/uL (130-400); RED BLOOD CELL COUNT(AUTO) 2.54 MIL/uL (4.00-5.50); RED CELL DISTRIBUTION WIDTH 15.1 % (11.0-15.5); WHITE BLOOD COUNT (AUTO) 17.7 K/uL (4.8-10.8)
[2020-09-02 04:03] LABS: CREATININE 1.1 mg/dL (0.5-1.5); MAGNESIUM 1.6 mg/dL (1.80-2.40); POTASSIUM 3.9 mmol/L (3.5-5.1)
[2020-09-02] MEDS: FUROSEMIDE 20MG VIAL IV SCH ×3 (05:13→22:27)
[2020-09-02] MEDS: LEVOTHYROXINE 25 MCG TABLET PO SCH (05:13)
[2020-09-02] MEDS: MAGNESIUM 2GM PREMIX 50ML 50 ML IV SCH (05:14)
[2020-09-02] MEDS: SOLU-MEDROL 125MG VIAL IVP SCH ×3 (08:41→22:27)
[2020-09-02] MEDS: Cholecalciferol (Vitamin D3) (Vitamin D3) 25 MCG PO SCH (08:41)
[2020-09-02] MEDS: FOLIC ACID 1 MG TABLET PO SCH (08:41)
[2020-09-02] MEDS: MULTIVITAMIN TABLET PO SCH (08:41)
[2020-09-02] MEDS: Rosuvastatin Calcium 10 MG PO SCH (08:41)
[2020-09-02] MEDS: THIAMINE HCL 100 MG TABLET PO SCH (08:41)
[2020-09-02 15:27] LABS: RETICULOCYTE % (AUTO) 4.67 % (0.42-2.23)
[2020-09-03] MEDS: LEVOTHYROXINE 25 MCG TABLET PO SCH (05:12)
[2020-09-03] MEDS: FUROSEMIDE 20MG VIAL IV SCH (05:12)
[2020-09-03 05:58] LABS: POTASSIUM 3.8 mmol/L (3.5-5.1)
[2020-09-03 05:59] VITALS: BP 111/58
[2020-09-03] MEDS: SOLU-MEDROL 125MG VIAL IVP SCH (06:01)
[2020-09-03 06:14] LABS: BASOPHILS % (AUTO) 0.2 % (0.0-5.0); EOSINOPHILS % (AUTO) 0.3 % (0.0-8.0); HEMATOCRIT 25.3 % (36-48); LYMPHOCYTES % (AUTO) 85.9 % (21.0-51.0); MEAN CORPUSCULAR HEMOGLOBIN 30.8 pg (27.0-33.0); MEAN CORPUSCULAR HGB CONC 32.4 g/dL (32.0-36.0); MEAN CORPUSCULAR VOLUME 95.1 fL (79-99); NEUTROPHILS % (AUTO) 12.3 % (40.0-77.0); PLATELET COUNT (AUTO) 109 K/uL (130-400); RED BLOOD CELL COUNT(AUTO) 2.66 MIL/uL (4.00-5.50); RED CELL DISTRIBUTION WIDTH 15.3 % (11.0-15.5); WHITE BLOOD COUNT (AUTO) 26.3 K/uL (4.8-10.8)
[2020-09-03 08:00] VITALS: BP 111/59
[2020-09-03] MEDS: Rosuvastatin Calcium 10 MG PO SCH (09:00)
[2020-09-03] MEDS: Cholecalciferol (Vitamin D3) (Vitamin D3) 25 MCG PO SCH (09:00)
[2020-09-03] MEDS: FOLIC ACID 1 MG TABLET PO SCH (09:18)
[2020-09-03] MEDS: MULTIVITAMIN TABLET PO SCH (09:18)
[2020-09-03] MEDS: THIAMINE HCL 100 MG TABLET PO SCH (09:18)
[2020-09-03 12:00] VITALS: BP 112/55
[2021-06-10] MEDS ORDERED: TORS20TA4 PO (13:54)
[2021-06-10] MEDS ORDERED: ASCO100031 PO (13:54)
[2021-06-10] MEDS ORDERED: POTA-79 PO (13:54)
[2021-06-10] MEDS ORDERED: FOLATE PO (13:54)
[2021-06-10] MEDS ORDERED: METO100T14 PO (13:54)
[2021-06-10] MEDS ORDERED: APIX5TAB PO (13:54)
[2021-06-10] MEDS ORDERED: DILT120T PO (13:54)
== END 2020-09-03 16:20 | disposition home health service (06) | DRG 853 ==
LOC: EDH 11:35 → OBSVTOIN 11:36 → 3BH 11:36 → 3AH 08-29 05:20
PROVIDERS: ADMIT Internal Medicine Hematology & Oncology; ATTEND Internal Medicine Hematology & Oncology
PROC: 30233N1 Transfusion of Nonautologous Red Blood Cells into Peripheral Vein, Percutaneous Approach (ICD-10-PCS; 2020-08-27)
PROC: 0JH60WZ Insertion of Totally Implantable Vascular Access Device into Chest Subcutaneous Tissue and Fascia, Open Approach (ICD-10-PCS; principal; 2020-08-29)
PROC: 02HV33Z Insertion of Infusion Device into Superior Vena Cava, Percutaneous Approach (ICD-10-PCS; 2020-08-29)
PROC: B548ZZA Ultrasonography of Superior Vena Cava, Guidance (ICD-10-PCS; 2020-08-29)
DX: A41.9 Sepsis, unspecified organism (principal); I50.33 Acute on chronic diastolic (congestive) heart failure; C91.12 Chronic lymphocytic leukemia of B-cell type in relapse; D61.818 Other pancytopenia; I13.0 Hypertensive heart and chronic kidney disease with heart failure and stage 1 through stage 4 chronic kidney disease, or unspecified chronic kidney disease; E87.1 Hypo-osmolality and hyponatremia; N17.9 Acute kidney failure, unspecified; D58.9 Hereditary hemolytic anemia, unspecified; D68.59 Other primary thrombophilia; N39.0 Urinary tract infection, site not specified; D59.10 Autoimmune hemolytic anemia, unspecified; E03.9 Hypothyroidism, unspecified; N18.9 Chronic kidney disease, unspecified; I48.91 Unspecified atrial fibrillation; E66.9 Obesity, unspecified; E78.5 Hyperlipidemia, unspecified; E78.00 Pure hypercholesterolemia, unspecified; R53.81 Other malaise; Z20.822 Contact with and (suspected) exposure to COVID-19; C44.320 Squamous cell carcinoma of skin of unspecified parts of face; Z68.28 Body mass index [BMI] 28.0-28.9, adult; Z90.711 Acquired absence of uterus with remaining cervical stump; Z85.828 Personal history of other malignant neoplasm of skin; Z88.0 Allergy status to penicillin; Z82.49 Family history of ischemic heart disease and other diseases of the circulatory system
CPT/HCPCS: 36415; 36430; 36561; 71045; 71046; 77001; 78582; 80048; 80053; 81001; 82948; 83615; 83735; 83880; 84100; 84443; 85014; 85018; 85025; 85027; 85045; 85378; 85610; 85730; 86850; 86900; 86901; 86923; 87040; 87088; 87426; 88184; 88185; 93970; 94760; 97039; 99156; 99157; A9540; A9558; G0378; J1644; J1940; J2250; J2930; J3010; J3475; J3490; J7050; P9016; U0003

== ENCOUNTER 2020-09-08 15:40 | Inpatient (IN) | payer MEDICARE ==
[~2020-09-08] VITALS: Ht 170.2 cm; Wt 84.8 kg
[2020-09-08] MEDS ORDERED: 0.9% NACL 250ML 250 ML IV ONE (16:20)
[2020-09-08] MEDS ORDERED: 0.9%NACL 1000ML 1,000 ML IV ONE (16:20)
[2020-09-08 16:21] LABS: BASOPHILS % (AUTO) 0.1 % (0.0-5.0); EOSINOPHILS % (AUTO) 0.9 % (0.0-8.0); LYMPHOCYTES % (AUTO) 73.9 % (21.0-51.0); MEAN CORPUSCULAR HEMOGLOBIN 32.9 pg (27.0-33.0); MEAN CORPUSCULAR HGB CONC 33.3 g/dL (32.0-36.0); MEAN CORPUSCULAR VOLUME 98.6 fL (79-99); MONOCYTES % (AUTO) 0.8 % (3.0-13.0); NEUTROPHILS % (AUTO) 23.6 % (40.0-77.0); PLATELET COUNT (AUTO) 101 K/uL (130-400); RED CELL DISTRIBUTION WIDTH 15.5 % (11.0-15.5); WHITE BLOOD COUNT (AUTO) 17.5 K/uL (4.8-10.8)
[2020-09-08 16:24] LABS: HEMATOCRIT 13.8 % (36-48)
[2020-09-08 16:32] LABS: POTASSIUM 4.8 mmol/L (3.5-5.1)
[2020-09-08 16:37] LABS: ALBUMIN 3.6 g/dL (3.5-5.0); BILIRUBIN,TOTAL 2.6 mg/dL (0.2-1.0); TOTAL PROTEIN, SERUM 5.6 g/dL (6.0-8.3)
[2020-09-08] MEDS ORDERED: SOLU-MEDROL 125MG VIAL ONE (18:01)
[2020-09-08] MEDS ORDERED: 0.9%NACL 1000ML 1,000 ML IV SCH (18:45)
[2020-09-08] MEDS ORDERED: FUROSEMIDE 20MG VIAL ONE ×2 (19:12→23:16)
[2020-09-09] VITALS (13 sets, daily range): BP systolic 92–118; BP diastolic 52–66
[2020-09-09] MEDS: SOLU-MEDROL 125MG VIAL IVP SCH ×5 (00:03→23:53)
[2020-09-09] MEDS: FUROSEMIDE 20MG VIAL IVP PRN ×3 (03:03→16:40)
[2020-09-09 08:58] LABS: HEMATOCRIT 22.6 % (36-48); MEAN CORPUSCULAR HEMOGLOBIN 29.2 pg (27.0-33.0); MEAN CORPUSCULAR HGB CONC 33.2 g/dL (32.0-36.0); MEAN CORPUSCULAR VOLUME 87.9 fL (79-99); PLATELET COUNT (AUTO) 91 K/uL (130-400); RED BLOOD CELL COUNT(AUTO) 2.57 MIL/uL (4.00-5.50); RED CELL DISTRIBUTION WIDTH 17.7 % (11.0-15.5); WHITE BLOOD COUNT (AUTO) 29.9 K/uL (4.8-10.8)
[2020-09-09 09:09] LABS: CREATININE 1.6 mg/dL (0.5-1.5); POTASSIUM 3.7 mmol/L (3.5-5.1)
[2020-09-09 09:38] LABS: LYMPHOCYTES % (MANUAL) 89 % (22-44); SEGMENTED NEUTROPHILS % 11 % (40-70)
[2020-09-09 09:39] LABS: MAN.DIFF COMMENT-IMPRESSION MANUAL DIFFERENTIAL; PLATELET MORPHOLOGY COMMENT DECREASED
[2020-09-09] MEDS ORDERED: FUROSEMIDE 20MG VIAL IV SCH (10:30)
[2020-09-10] VITALS (14 sets, daily range): BP systolic 98–119; BP diastolic 56–71
[2020-09-10] MEDS: SOLU-MEDROL 125MG VIAL IVP SCH ×4 (05:32→23:54)
[2020-09-10 06:16] LABS: BASOPHILS % (AUTO) 0.2 % (0.0-5.0); EOSINOPHILS % (AUTO) 0.1 % (0.0-8.0); HEMATOCRIT 29.5 % (36-48); LYMPHOCYTES % (AUTO) 80.6 % (21.0-51.0); MEAN CORPUSCULAR HGB CONC 32.9 g/dL (32.0-36.0); MEAN CORPUSCULAR VOLUME 88.1 fL (79-99); MONOCYTES % (AUTO) 0.4 % (3.0-13.0); NEUTROPHILS % (AUTO) 18.1 % (40.0-77.0); PLATELET COUNT (AUTO) 78 K/uL (130-400); RED BLOOD CELL COUNT(AUTO) 3.35 MIL/uL (4.00-5.50); RED CELL DISTRIBUTION WIDTH 17.1 % (11.0-15.5)
[2020-09-10 06:27] LABS: ALBUMIN 3.6 g/dL (3.5-5.0); BILIRUBIN,TOTAL 2.4 mg/dL (0.2-1.0); CREATININE 1.4 mg/dL (0.5-1.5); POTASSIUM 3.9 mmol/L (3.5-5.1); TOTAL PROTEIN, SERUM 5.6 g/dL (6.0-8.3)
[2020-09-10 06:40] LABS: INR 1.24 (0.85-1.15)
[2020-09-10 06:41] LABS: PARTIAL THROMBOPLASTIN TIME 21.8 SEC (26.3-35.5)
[2020-09-10 07:38] LABS: LYMPHOCYTES % (MANUAL) 79 % (22-44); MONOCYTES % (MANUAL) 1 % (2-9); SEGMENTED NEUTROPHILS % 20 % (40-70)
[2020-09-10 07:40] LABS: MAN.DIFF COMMENT-IMPRESSION MANUAL DIFFERENTIAL; PLATELET MORPHOLOGY COMMENT DECREASED
[2020-09-10] MEDS ORDERED: LIDOCAINE HCL 1% MDV 50ML VIAL ONE (09:21)
[2020-09-10] MEDS ORDERED: HEPARIN 1,000 UNIT VIAL ONE (09:21)
[2020-09-10] MEDS ORDERED: FENTANYL CITRATE PF 50 MCG/1 ML 2ML VIAL ONE (11:22)
[2020-09-10] MEDS ORDERED: OCTYL 2-CYANOACRYLATE 1 EACH TP ONE (11:33)
[2020-09-11 03:29] VITALS: BP 110/67
[2020-09-11] MEDS: SOLU-MEDROL 125MG VIAL IVP SCH ×4 (05:39→23:53)
[2020-09-11 07:30] VITALS: BP 124/74
[2020-09-11 10:52] LABS: HEMATOCRIT 28.4 % (36-48); MEAN CORPUSCULAR HEMOGLOBIN 29.3 pg (27.0-33.0); MEAN CORPUSCULAR HGB CONC 31.7 g/dL (32.0-36.0); MEAN CORPUSCULAR VOLUME 92.5 fL (79-99); NUCLEATED RED BLOOD CELLS 0.1 % (0.0-0.19); RED BLOOD CELL COUNT(AUTO) 3.07 MIL/uL (4.00-5.50); RED CELL DISTRIBUTION WIDTH 17.1 % (11.0-15.5); WHITE BLOOD COUNT (AUTO) 27.7 K/uL (4.8-10.8)
[2020-09-11 11:00] VITALS: BP 121/66
[2020-09-11 11:00] LABS: CREATININE 1.3 mg/dL (0.5-1.5); POTASSIUM 3.9 mmol/L (3.5-5.1)
[2020-09-11 12:31] LABS: RETICULOCYTE % (AUTO) 1.87 % (0.42-2.23)
[2020-09-11 15:56] VITALS: BP 122/72
[2020-09-11 19:52] VITALS: BP 119/70
[2020-09-11 23:40] VITALS: BP 111/68
[2020-09-12 03:57] VITALS: BP 118/68
[2020-09-12 04:54] LABS: HEMATOCRIT 27.2 % (36-48); MEAN CORPUSCULAR HEMOGLOBIN 29.3 pg (27.0-33.0); MEAN CORPUSCULAR VOLUME 91.6 fL (79-99); RED BLOOD CELL COUNT(AUTO) 2.97 MIL/uL (4.00-5.50); RED CELL DISTRIBUTION WIDTH 16.6 % (11.0-15.5); RETICULOCYTE % (AUTO) 2.16 % (0.42-2.23)
[2020-09-12 04:55] LABS: WHITE BLOOD COUNT (AUTO) 32.7 K/uL (4.8-10.8)
[2020-09-12] MEDS: SOLU-MEDROL 125MG VIAL IVP SCH ×3 (05:36→18:12)
[2020-09-12 07:30] VITALS: BP 129/77
[2020-09-12 11:00] VITALS: BP 138/80
[2020-09-12] MEDS: FOLIC ACID 1 MG TABLET PO SCH (15:05)
[2020-09-12 16:00] VITALS: BP 118/73
[2020-09-12 20:00] VITALS: BP 120/68
[2020-09-13] VITALS (7 sets, daily range): BP systolic 109–137; BP diastolic 55–75
[2020-09-13] MEDS: SOLU-MEDROL 125MG VIAL IVP SCH ×5 (00:03→23:44)
[2020-09-13 04:40] LABS: HEMATOCRIT 29.6 % (36-48); MEAN CORPUSCULAR HEMOGLOBIN 28.8 pg (27.0-33.0); MEAN CORPUSCULAR HGB CONC 31.4 g/dL (32.0-36.0); MEAN CORPUSCULAR VOLUME 91.6 fL (79-99); PLATELET COUNT (AUTO) 62 K/uL (130-400); RED BLOOD CELL COUNT(AUTO) 3.23 MIL/uL (4.00-5.50); RED CELL DISTRIBUTION WIDTH 16.4 % (11.0-15.5)
[2020-09-13 05:09] LABS: WHITE BLOOD COUNT (AUTO) 42.2 K/uL (4.8-10.8)
[2020-09-13 05:48] LABS: LYMPHOCYTES % (MANUAL) 72 % (22-44); MAN.DIFF COMMENT-IMPRESSION MANUAL DIFFERENTIAL; MONOCYTES % (MANUAL) 1 % (2-9); PLATELET MORPHOLOGY COMMENT DECREASED; REACTIVE LYMPHOCYTES 2 % (0-0); SEGMENTED NEUTROPHILS % 25 % (40-70)
[2020-09-13] MEDS: FOLIC ACID 1 MG TABLET PO SCH (09:34)
[2020-09-13] MEDS: PANTOPRAZOLE 40 MG TAB DR PO SCH (17:13)
[2020-09-14 03:59] VITALS: BP 123/64
[2020-09-14] MEDS: SOLU-MEDROL 125MG VIAL IVP SCH ×2 (06:13→12:40)
[2020-09-14 06:30] LABS: HEMATOCRIT 28.3 % (36-48); MEAN CORPUSCULAR HEMOGLOBIN 29.6 pg (27.0-33.0); MEAN CORPUSCULAR HGB CONC 32.2 g/dL (32.0-36.0); MEAN CORPUSCULAR VOLUME 92.2 fL (79-99); PLATELET COUNT (AUTO) 58 K/uL (130-400); RED BLOOD CELL COUNT(AUTO) 3.07 MIL/uL (4.00-5.50); RED CELL DISTRIBUTION WIDTH 16.2 % (11.0-15.5)
[2020-09-14 06:37] LABS: CREATININE 0.9 mg/dL (0.5-1.5); POTASSIUM 4.2 mmol/L (3.5-5.1)
[2020-09-14 06:45] LABS: WHITE BLOOD COUNT (AUTO) 38.3 K/uL (4.8-10.8)
[2020-09-14 07:26] LABS: LYMPHOCYTES % (MANUAL) 84 % (22-44); MAN.DIFF COMMENT-IMPRESSION MANUAL DIFFERENTIAL; MONOCYTES % (MANUAL) 1 % (2-9); SEGMENTED NEUTROPHILS % 15 % (40-70)
[2020-09-14 07:27] LABS: PLATELET MORPHOLOGY COMMENT MARKED DECREASE
[2020-09-14 07:57] VITALS: BP 136/69
[2020-09-14] MEDS ORDERED: FOLI0.8C PO (09:51)
[2020-09-14] MEDS ORDERED: PANT40TA55 PO (09:51)
[2020-09-14] MEDS ORDERED: PRED20TA3 PO (09:51)
[2020-09-14] MEDS: PANTOPRAZOLE 40 MG TAB DR PO SCH (10:19)
[2020-09-14] MEDS: FOLIC ACID 1 MG TABLET PO SCH (10:19)
[2020-09-14 11:40] VITALS: BP 119/68
[2021-06-10] MEDS ORDERED: POTA-79 PO (13:54)
[2021-06-10] MEDS ORDERED: APIX5TAB PO (13:54)
[2021-06-10] MEDS ORDERED: DILT120T PO (13:54)
[2021-06-10] MEDS ORDERED: METO100T14 PO (13:54)
[2021-06-10] MEDS ORDERED: TORS20TA4 PO (13:54)
[2021-06-10] MEDS ORDERED: FOLATE PO (13:54)
[2021-06-10] MEDS ORDERED: ASCO100031 PO (13:54)
== END 2020-09-14 14:22 | disposition home or self-care (01) | DRG 841 ==
LOC: EDH 15:40 → OBSVTOIN 15:41 → EDHIP 15:41 → 3DH 22:54
PROVIDERS: ADMIT Internal Medicine Hematology & Oncology; ATTEND Internal Medicine Hematology & Oncology
PROC: 05WYX3Z Revision of Infusion Device in Upper Vein, External Approach (ICD-10-PCS; principal; 2020-09-08)
PROC: 30233N1 Transfusion of Nonautologous Red Blood Cells into Peripheral Vein, Percutaneous Approach (ICD-10-PCS; 2020-09-10)
DX: C91.12 Chronic lymphocytic leukemia of B-cell type in relapse (principal); D59.10 Autoimmune hemolytic anemia, unspecified; I50.9 Heart failure, unspecified; E78.00 Pure hypercholesterolemia, unspecified; D69.6 Thrombocytopenia, unspecified; I11.0 Hypertensive heart disease with heart failure; Z90.711 Acquired absence of uterus with remaining cervical stump; Z85.828 Personal history of other malignant neoplasm of skin; Z79.02 Long term (current) use of antithrombotics/antiplatelets; Z79.899 Other long term (current) drug therapy; Z88.0 Allergy status to penicillin; Z82.49 Family history of ischemic heart disease and other diseases of the circulatory system
CPT/HCPCS: 36415; 36430; 36597; 77001; 80048; 80053; 83010; 83615; 85025; 85027; 85045; 85610; 85730; 86850; 86900; 86901; 86923; 99156; 99157; G0378; J1644; J1940; J2930; J3010; J3490; J7030; J7050; P9016

== ENCOUNTER 2020-09-22 14:55 | Observation (INO) | payer MEDICARE ==
[~2020-09-22] VITALS: Ht 170.2 cm; Wt 81.2 kg
[~2020-09-22 14:55] MED LIST changes: -CLOP75TA14 PO; +FOLI0.8C PO; -NAPR-1141 PO; +PANT40TA55 PO; +PRED20TA3 PO
[2020-09-22] MEDS ORDERED: 0.9%NACL 1000ML 1,000 ML IV ONE (17:05)
[2020-09-22 18:10] VITALS: BP 94/44
[2020-09-22] MEDS ORDERED: 0.9%NACL 1000ML 1,000 ML IV SCH (18:15)
[2020-09-22] MEDS ORDERED: FOLI0.4T6 PO (19:06)
[2020-09-22] MEDS ORDERED: ACET-2743 PO (20:05)
[2020-09-22] MEDS: FUROSEMIDE 20MG VIAL IV PRN ×2 (20:26→23:57)
[2020-09-22] MEDS ORDERED: ACETAMINOPHEN 500 MG TABLET PO SCH (21:00)
[2020-09-22] MEDS: ACETAMINOPHEN 500 MG TABLET PO SCH (21:27)
[2020-09-22] MEDS: SOLU-MEDROL 125MG VIAL IV SCH (23:28)
[2020-09-22 23:53] VITALS: BP 85/45
[2020-09-23] VITALS (8 sets, daily range): BP systolic 98–134; BP diastolic 50–77
[2020-09-23] MEDS: FUROSEMIDE 20MG VIAL IV PRN ×3 (04:25→12:48)
[2020-09-23] MEDS: SOLU-MEDROL 125MG VIAL IV SCH ×2 (08:22→13:55)
[2020-09-23] MEDS: ACETAMINOPHEN 500 MG TABLET PO SCH (09:36)
[2020-09-23 12:43] LABS: HEMATOCRIT 28.6 % (36-48); MEAN CORPUSCULAR HEMOGLOBIN 29.2 pg (27.0-33.0); MEAN CORPUSCULAR HGB CONC 32.5 g/dL (32.0-36.0); MEAN CORPUSCULAR VOLUME 89.7 fL (79-99); NUCLEATED RED BLOOD CELLS 0.3 % (0.0-0.19); PLATELET COUNT (AUTO) 64 K/uL (130-400); RED BLOOD CELL COUNT(AUTO) 3.19 MIL/uL (4.00-5.50); RED CELL DISTRIBUTION WIDTH 15.2 % (11.0-15.5); WHITE BLOOD COUNT (AUTO) 13.2 K/uL (4.8-10.8)
[2020-09-23] MEDS ORDERED: HEPARIN 5,000 UNIT VIAL SQ SCH (13:45)
[2020-09-23] MEDS ORDERED: HEPARIN 5,000 UNIT VIAL ONE (13:49)
[2021-06-10] MEDS ORDERED: POTA-79 PO (13:54)
[2021-06-10] MEDS ORDERED: APIX5TAB PO (13:54)
[2021-06-10] MEDS ORDERED: TORS20TA4 PO (13:54)
[2021-06-10] MEDS ORDERED: DILT120T PO (13:54)
[2021-06-10] MEDS ORDERED: METO100T14 PO (13:54)
[2021-06-10] MEDS ORDERED: FOLATE PO (13:54)
[2021-06-10] MEDS ORDERED: ASCO100031 PO (13:54)
== END 2020-09-23 14:30 | disposition home or self-care (01) ==
LOC: EDH 14:55 → EDHIP 14:56 → WSH 18:05
PROVIDERS: ADMIT Internal Medicine Hematology & Oncology; ATTEND Internal Medicine Hematology & Oncology
DX: C91.12 Chronic lymphocytic leukemia of B-cell type in relapse (principal); C44.320 Squamous cell carcinoma of skin of unspecified parts of face; D59.10 Autoimmune hemolytic anemia, unspecified; E78.00 Pure hypercholesterolemia, unspecified; I11.0 Hypertensive heart disease with heart failure; I50.9 Heart failure, unspecified; Z85.828 Personal history of other malignant neoplasm of skin; Z90.710 Acquired absence of both cervix and uterus; Z88.0 Allergy status to penicillin; Z88.7 Allergy status to serum and vaccine
CPT/HCPCS: 36415 ×2; 36430 ×2; 85014 ×2; 85018 ×2; 85027; 86850; 86900; 86901; 86923 ×2; 96372; 96374; 96375; 96376 ×2; 99284; G0378 ×6; J1644 ×2; J1940 ×4; J2930 ×3; J7030; P9016 ×4

== ENCOUNTER 2021-09-08 07:11 | Day surgery (SDC) | payer MEDICARE ==
[2021-09-03 11:30] LABS: BASOPHILS % (AUTO) 0.5 % (0.0-5.0); EOSINOPHILS % (AUTO) 3.2 % (0.0-8.0); HEMATOCRIT 36.6 % (36-48); LYMPHOCYTES % (AUTO) 41.3 % (21.0-51.0); MEAN CORPUSCULAR HGB CONC 33.3 g/dL (32.0-36.0); MEAN CORPUSCULAR VOLUME 89.9 fL (79-99); MONOCYTES % (AUTO) 7.6 % (3.0-13.0); NEUTROPHILS % (AUTO) 45.8 % (40.0-77.0); PLATELET COUNT (AUTO) 139 K/uL (130-400); RED BLOOD CELL COUNT(AUTO) 4.07 MIL/uL (4.00-5.50); RED CELL DISTRIBUTION WIDTH 13.9 % (11.0-15.5); WHITE BLOOD COUNT (AUTO) 7.5 K/uL (4.8-10.8)
[2021-09-03 11:36] LABS: INR 1.12 (0.85-1.15); PROTHROMBIN TIME 12.1 SEC (9.6-11.6)
[2021-09-03 11:37] LABS: CREATININE 1.3 mg/dL (0.5-1.5); PARTIAL THROMBOPLASTIN TIME 32.2 SEC (26.3-35.5); POTASSIUM 4.1 mmol/L (3.5-5.1)
[2021-09-07 14:15] VITALS: BP 103/63
[2021-09-08] VITALS (17 sets, daily range): BP systolic 91–130; BP diastolic 46–71
[~2021-09-08] VITALS: Ht 170.2 cm; Wt 80.9 kg
[~2021-09-08 07:11] MED LIST changes: -AEC81 PO; +APIX5TAB PO; +ASCO100031 PO; +DILT120T PO; +FOLATE PO; -FOLI0.8C PO; -FURO20TA4 PO; -LEVO25TA85 PO; +METO100T14 PO; -METO25TA6 PO; -PANT40TA55 PO; +POTA-79 PO; -PRED20TA3 PO; -ROSU10TA28 PO; +TORS20TA4 PO
[2021-09-08] MEDS ORDERED: 0.9%NACL 1000ML 1,000 ML IV ONE (08:36)
[2021-09-08] MEDS ORDERED: AMIODARONE 540 MG/D5W 300ML (0.5MG/MIN) IV SCH ×2 (09:00)
[2021-09-08] MEDS ORDERED: AMIODARONE 150MG VIAL 150 MG in DEXTROSE 5%-WATER 100 ML IV SCH (09:00)
[2021-09-08] MEDS ORDERED: AMIODARONE 360MG/200ML D5W(1MG/MIN) IV SCH ×2 (09:00)
[2021-09-08] MEDS ORDERED: LIDOCAINE HCL 2% VISCOUS 15 ML UDCUP ONE (09:14)
[2021-09-08] MEDS ORDERED: MIDAZOLAM HCL 1 MG/ML 2ML VIAL ONE (09:14)
[2021-09-08] MEDS ORDERED: FENTANYL CITRATE PF 50 MCG/1 ML 2ML VIAL ONE (09:15)
== END 2021-09-08 11:10 | disposition home or self-care (01) ==
LOC: DAH 07:11 → EDSTATUS 10:00 → DAH 11:10
PROVIDERS: ATTEND Internal Medicine Cardiovascular Disease
DX: I48.19 Other persistent atrial fibrillation (principal); I35.0 Nonrheumatic aortic (valve) stenosis; I50.42 Chronic combined systolic (congestive) and diastolic (congestive) heart failure; G47.33 Obstructive sleep apnea (adult) (pediatric); M19.90 Unspecified osteoarthritis, unspecified site; Z79.01 Long term (current) use of anticoagulants; Z79.899 Other long term (current) drug therapy
CPT/HCPCS: 36415; 80048; 85025; 85610; 85730; 87635; 93005; 93313; A4215; A4216; A4221; A4222; A4223 ×3; A4606; A4663; C9803; J0282 ×3; J2250; J3010; J7030; J7060 ×3

== ENCOUNTER 2021-12-01 05:38 | Day surgery (SDC) | payer MEDICARE ==
[2021-11-27 08:51] LABS: BASOPHILS % (AUTO) 0.6 % (0.0-5.0); EOSINOPHILS % (AUTO) 3.4 % (0.0-8.0); HEMATOCRIT 34.5 % (36-48); LYMPHOCYTES % (AUTO) 41.2 % (21.0-51.0); MEAN CORPUSCULAR HEMOGLOBIN 29.9 pg (27.0-33.0); MEAN CORPUSCULAR HGB CONC 33.3 g/dL (32.0-36.0); MEAN CORPUSCULAR VOLUME 89.8 fL (79-99); MONOCYTES % (AUTO) 9.3 % (3.0-13.0); NEUTROPHILS % (AUTO) 42.3 % (40.0-77.0); PLATELET COUNT (AUTO) 122 K/uL (130-400); RED BLOOD CELL COUNT(AUTO) 3.84 MIL/uL (4.00-5.50); RED CELL DISTRIBUTION WIDTH 13.9 % (11.0-15.5)
[2021-11-27 08:53] LABS: APPEARANCE,URINE Clear (CLEAR); BILIRUBIN,URINE Negative (NEGATIVE); COLOR,URINE Yellow (YELLOW); GLUCOSE, URINE (UA) Negative (NEGATIVE); KETONES,URINE Negative (NEGATIVE); LEUKOCYTE ESTERASE ,URINE Small (NEGATIVE); NITRATE,URINE Negative (NEGATIVE); OCCULT BLOOD,URINE Trace (NEGATIVE); PH,URINE 5.5 (5.0-8.0); PROTEIN,URINE Negative (NEGATIVE); UROBILINOGEN,URINE 0.2 mg/dL (0.2-1.0)
[2021-11-27 09:01] LABS: BACTERIA,URINE Rare /HPF (None Seen); RBC,URINE 0-1 /HPF (0-1); SQUAMOUS EPITHELIAL CELL,UR Few /HPF (0-2)
[2021-11-27 09:06] LABS: CREATININE 1.2 mg/dL (0.5-1.5)
[2021-11-27 09:08] LABS: INR 1.06 (0.85-1.15); PROTHROMBIN TIME 11.5 SEC (9.6-11.6)
[2021-11-27 09:09] LABS: PARTIAL THROMBOPLASTIN TIME 29.7 SEC (26.3-35.5)
[2021-11-27 09:14] LABS: B-TYPE NATRIURETIC PEPTIDE 218 pg/mL (0-100)
[2021-11-27 13:49] VITALS: BP 132/73
[~2021-12-01] VITALS: Ht 170.2 cm; Wt 80.2 kg
[2021-12-01] VITALS (8 sets, daily range): BP systolic 99–130; BP diastolic 51–69
[~2021-12-01 05:38] MED LIST changes: -APIX5TAB PO; -ASCO100031 PO; -CHOL100046 PO; +CHOL500045 PO; -DILT120T PO; -FOLATE PO; +FOLI0.8T3 PO; +LEVO25TA54 PO; +RIVA15TA PO
[2021-12-01] MEDS ORDERED: 0.9%NACL 1000ML 1,000 ML IV ONE (06:11)
[2021-12-01] MEDS ORDERED: HEPARIN 10,000 UNIT/10ML (1,000 UNIT/ML) VIAL ONE (07:13)
[2021-12-01] MEDS ORDERED: IOHEXOL-350 50ML VIAL IV ONE (07:13)
[2021-12-01] MEDS ORDERED: NITROGLYCERIN 50MG VIAL ONE (07:13)
[2021-12-01] MEDS ORDERED: SODIUM BICARB 50MEQ 50ML VIAL 50 ML ONE (07:13)
[2021-12-01] MEDS ORDERED: LIDOCAINE HCL 400MG/20ML VIAL ONE (07:14)
[2021-12-01] MEDS ORDERED: IOHEXOL 350 MG/ML 100ML INFUS..BTL IV ONE (07:14)
[2021-12-01] MEDS ORDERED: NICARDIPINE 25MG INJ IV ONE (07:15)
[2021-12-01] MEDS ORDERED: MIDAZOLAM HCL 1 MG/ML 2ML VIAL ONE (07:47)
[2021-12-01] MEDS ORDERED: FENTANYL CITRATE PF 50 MCG/1 ML 2ML VIAL ONE (07:47)
[2021-12-01] MEDS ORDERED: VASOPRESSIN 20 UNITS/ML 1ML VIAL ONE (08:08)
== END 2021-12-01 12:35 | disposition home or self-care (01) ==
LOC: DAH 05:38
PROVIDERS: ATTEND Internal Medicine Cardiovascular Disease
DX: I35.0 Nonrheumatic aortic (valve) stenosis (principal); I25.119 Atherosclerotic heart disease of native coronary artery with unspecified angina pectoris; I25.2 Old myocardial infarction; I50.42 Chronic combined systolic (congestive) and diastolic (congestive) heart failure; M17.10 Unilateral primary osteoarthritis, unspecified knee; I48.0 Paroxysmal atrial fibrillation; G47.33 Obstructive sleep apnea (adult) (pediatric); Z88.0 Allergy status to penicillin; Z88.8 Allergy status to other drugs, medicaments and biological substances; Z82.49 Family history of ischemic heart disease and other diseases of the circulatory system; Z79.01 Long term (current) use of anticoagulants; Z79.899 Other long term (current) drug therapy; Z79.82 Long term (current) use of aspirin; Z79.890 Hormone replacement therapy
CPT/HCPCS: 36415; 71045; 80048; 81001; 83880; 85025; 85610; 85730; 87077; 87088; 87186; 93005; 93454; A4215; A4216; A4221; A4222; A4223 ×3; A4335 ×2; A4554; A4606; A4663; C1769; C1894; J1644 ×2; J2250; J3010; J3490 ×4; J7030; Q9965; Q9967 ×2; 99156; 99157

== ENCOUNTER 2022-04-06 05:47 | Day surgery (SDC) | payer MEDICARE ==
[2022-04-01 15:43] LABS: BASOPHILS % (AUTO) 0.2 % (0.0-5.0); EOSINOPHILS % (AUTO) 0.3 % (0.0-8.0); HEMATOCRIT 34.8 % (36-48); LYMPHOCYTES % (AUTO) 23.6 % (21.0-51.0); MEAN CORPUSCULAR HEMOGLOBIN 28.5 pg (27.0-33.0); MEAN CORPUSCULAR VOLUME 91.8 fL (79-99); MONOCYTES % (AUTO) 3.9 % (3.0-13.0); NEUTROPHILS % (AUTO) 70.9 % (40.0-77.0); PLATELET COUNT (AUTO) 157 K/uL (130-400); RED BLOOD CELL COUNT(AUTO) 3.79 MIL/uL (4.00-5.50); RED CELL DISTRIBUTION WIDTH 15.5 % (11.0-15.5); WHITE BLOOD COUNT (AUTO) 11.2 K/uL (4.8-10.8)
[2022-04-01 15:55] LABS: INR 1.34 (0.85-1.15); PROTHROMBIN TIME 14.4 SEC (9.6-11.6)
[2022-04-01 15:56] LABS: CREATININE 1.5 mg/dL (0.5-1.5); POTASSIUM 3.6 mmol/L (3.5-5.1)
[2022-04-05 11:02] VITALS: BP 126/71
[2022-04-06] VITALS (8 sets, daily range): BP systolic 96–118; BP diastolic 58–76
[~2022-04-06] VITALS: Ht 170.2 cm; Wt 82.9 kg
[~2022-04-06 05:47] MED LIST changes: +CLOP75TA32 PO; +IRON PO; -MV-M1TAB46 PO; +ROSU10TA28 PO
[2022-04-06] MEDS ORDERED: 0.9%NACL 1000ML 1,000 ML IV ONE (06:19)
[2022-04-06] MEDS ORDERED: LIDOCAINE HCL 1% 20 ML VIAL ONE (08:45)
[2022-04-06] MEDS ORDERED: NICARDIPINE 25MG INJ IV ONE (08:45)
[2022-04-06] MEDS ORDERED: NITROGLYCERIN 50MG VIAL ONE (08:45)
[2022-04-06] MEDS ORDERED: MIDAZOLAM HCL 1 MG/ML 2ML VIAL ONE (08:45)
[2022-04-06] MEDS ORDERED: HEPARIN 10,000 UNIT/10ML (1,000 UNIT/ML) VIAL ONE (08:45)
[2022-04-06] MEDS ORDERED: SODIUM BICARB 50MEQ 50ML VIAL 50 ML ONE (08:45)
[2022-04-06] MEDS ORDERED: FENTANYL CITRATE PF 50 MCG/1 ML 2ML VIAL ONE (08:46)
[2022-04-06] MEDS ORDERED: IOHEXOL 350 MG/ML 100ML INFUS..BTL IV ONE (08:47)
[2022-04-06] MEDS ORDERED: BIVALIRUDIN 250 MG/VIAL IV ONE (10:32)
[2022-04-06] MEDS ORDERED: CLOPIDOGREL 300MG TAB ONE (11:25)
[2022-04-06] MEDS ORDERED: ASPIRIN 81MG CHEW TAB ONE (11:25)
[2022-04-06] MEDS ORDERED: ASPIRIN 325MG EC TAB PO ONE (11:27)
[2022-04-06] MEDS ORDERED: 0.9%NACL 1000ML 1,000 ML IV SCH (13:00)
[2022-04-06] MEDS ORDERED: ACETAMINOPHEN WITH CODEINE 1 TAB TAB PO PRN (13:00)
[2022-04-06] MEDS ORDERED: METOPROLOL TARTRATE 25 MG TAB ONE (14:25)
[2022-04-06] MEDS: METOPROLOL TARTRATE 50 MG TAB PO ONE (14:47)
== END 2022-04-06 18:10 | disposition home or self-care (01) ==
LOC: DAH 05:47
PROVIDERS: ATTEND Internal Medicine Cardiovascular Disease
DX: I35.0 Nonrheumatic aortic (valve) stenosis (principal); I25.10 Atherosclerotic heart disease of native coronary artery without angina pectoris; M17.0 Bilateral primary osteoarthritis of knee; G47.33 Obstructive sleep apnea (adult) (pediatric); I48.0 Paroxysmal atrial fibrillation; Z88.0 Allergy status to penicillin; Z88.8 Allergy status to other drugs, medicaments and biological substances; Z79.01 Long term (current) use of anticoagulants; Z79.899 Other long term (current) drug therapy; Z82.49 Family history of ischemic heart disease and other diseases of the circulatory system
CPT/HCPCS: 80048; 85025; 85610; 85730; 36415; 71045; 93005; 93571; 93572; 93799; 93454; C9600 ×2; C1761; C1887 ×2; C1894 ×3; C1769 ×2; C1760; C1874 ×5; J3010; J7030; J3490 ×3; J1644 ×3; J2250; Q9967; A4215; A4222; A4221; A4663; A4216; A4606; C9601; Q9965 ×2; A4223 ×3; 99156; 99157; J0583

== ENCOUNTER → 2023-04-25 | Outpatient (CLI) | payer MEDICARE ==
[~2023-04-25] MED LIST changes: -METO100T14 PO; +METO25TA6 PO; +POTA-364 PO; -POTA-79 PO
== END | disposition home or self-care (01) ==
LOC: RAH 10:39
PROVIDERS: ATTEND Family Medicine
DX: J84.9 Interstitial pulmonary disease, unspecified (principal); I70.0 Atherosclerosis of aorta
CPT/HCPCS: 71045